=== PATIENT | male | born 1970 | race Caucasian/White ===

== ENCOUNTER 2021-02-13 08:32 | Emergency (ER) | payer OTHER ==
[~2021-02-13 08:32] MED LIST: LEVETIRACETAM500 MG PO
[2021-02-13 12:37] LABS: BASOPHIL 0.9 % (0-2); EOSINOPHIL 2.1 % (0-5); HCT 44.7 % (42.0-52.0); HGB 14.7 g/dl (13.2-18.0); LYMPHOCYTE 17.3 % (15-48); MCH 31.9 pg (25.0-31.0); MCHC 32.9 g/dL (32.0-36.0); MONOCYTE 8.7 % (0-12); MPV 11.1 fL (6.0-9.5); NEUTROPHIL 70.9 % (41-80); NRBC 0; PLT 196 K/uL (150-400); RBC 4.61 M/uL (4.70-6.00); RDW 13.3 % (11.5-14.0)
[2021-02-13 12:59] LABS: BUN/CREAT RATIO (CALC) 11.1 RATIO; CREATININE 0.99 mg/dL (0.67-1.17); POTASSIUM 3.5 mmol/L (3.5-5.1)
[2021-02-13] MEDS ORDERED: COLCRYS0.6 MG PO (13:11)
[2021-02-13] MEDS ORDERED: PERCOCET 5-3251 EACH PO (13:39)
== END 2021-02-13 14:05 | disposition home or self-care (01) ==
LOC: FER 08:32
PROVIDERS: Emergency Medicine
DX: M10.071 Idiopathic gout, right ankle and foot (principal); I50.9 Heart failure, unspecified; N18.9 Chronic kidney disease, unspecified; Z95.5 Presence of coronary angioplasty implant and graft
CPT/HCPCS: 36415; 73630; 80048; 84550; 85025

== ENCOUNTER 2021-09-26 20:55 | Emergency (ER) | payer OTHER ==
[~2021-09-26 20:55] MED LIST changes: +COLCRYS0.6 MG PO; +PERCOCET 5-3251 EACH PO
[2021-09-26 22:13] LABS: EOSINOPHIL 2.9 % (0-5); HCT 42.7 % (42.0-52.0); HGB 14.4 g/dl (13.2-18.0); MCH 33.1 pg (25.0-31.0); MCHC 33.7 g/dL (32.0-36.0); MCV 98.2 fL (78.0-100.0); MONOCYTE 9.2 % (0-12); MPV 11.2 fL (6.0-9.5); NEUTROPHIL 59.7 % (41-80); NRBC 0; PLT 227 K/uL (150-400); RBC 4.35 M/uL (4.70-6.00); WBC 5.2 K/uL (4.0-10.5)
[2021-09-26 22:24] LABS: INR 1.06 (0.9-1.2); PROTHROMBIN TIME 13.2 SECONDS (11.8-13.4); PTT 28.1 SECONDS (24.4-34.7)
[2021-09-26 22:48] LABS: ALBUMIN 3.8 g/dL (3.4-5.0); ALKALINE PHOSHATASE 130 U/L (46-116); ALT 41 U/L (16-63); AST 25 U/L (15-37); BILIRUBIN - TOTAL 0.5 mg/dL (0.2-1.0); BUN 12 mg/dL (7-18); BUN/CREAT RATIO (CALC) 11.8 RATIO; CHLORIDE 104 mmol/L (98-107); CO2 (BICARBONATE) 30 mmol/L (21-32); CREATININE 1.02 mg/dL (0.67-1.17); GLOBULIN (CALCULATION) 3.4 g/dL; GLUCOSE 106 mg/dL (74-106); MAGNESIUM 2.4 mg/dL (1.8-2.4); POTASSIUM 3.5 mmol/L (3.5-5.1); TOTAL PROTEIN 7.2 g/dL (6.4-8.2)
[2021-09-26 22:49] LABS: C-REACTIVE PROTEIN < 0.20 mg/dL (<=0.90)
[2021-09-26] MEDS ORDERED: PROVENTIL HFA6.7 GM INH (23:24)
[2021-09-26] MEDS ORDERED: TESSALON PERLE100 MG PO (23:24)
== END 2021-09-26 23:40 | disposition home or self-care (01) ==
LOC: FER 20:55
PROVIDERS: Emergency Medicine
DX: U07.1 COVID-19 (principal); R07.89 Other chest pain; I25.10 Atherosclerotic heart disease of native coronary artery without angina pectoris; I50.9 Heart failure, unspecified; I25.2 Old myocardial infarction; Z95.5 Presence of coronary angioplasty implant and graft; Z79.82 Long term (current) use of aspirin; Z79.899 Other long term (current) drug therapy
CPT/HCPCS: 36415; 71045; 80053; 82728; 83540; 83735; 83880; 84145; 84439; 84443; 84484; 85025; 85610; 85730; 86140; 93005; J7050; U0002